=== PATIENT | female | born 1995 | race Caucasian/White ===

== ENCOUNTER 2018-03-21 08:45 | Emergency (ER) | payer OTHER, BC ==
[~2018-03-21] VITALS: Ht 162.6 cm; Wt 54.4 kg
[~2018-03-21 08:45] MED LIST: FLUO-1 PO; LAMO150 PO; LAMO25 PO; ZOFR4TAB PO
[2018-03-21 08:57] VITALS: BP 114/75; RESP 20; TEMP 99.2
[2018-03-21 09:07] VITALS: BP 114/75; PULSE 102; RESP 20; O2SAT 100
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
[2018-03-21] MEDS ORDERED: TETANUS/DIPHTHERIA TOXOID ADULT 0.5 ML VIAL IM ONE (09:15)
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
[2018-03-21] MEDS ORDERED: IBUP-232 PO (10:47)
== END 2018-03-21 11:22 | disposition home or self-care (01) ==
LOC: NEPE 08:45
DX: M54.2 Cervicalgia (principal); M25.562 Pain in left knee; M25.561 Pain in right knee; S60.512A Abrasion of left hand, initial encounter; V89.2XXA Person injured in unspecified motor-vehicle accident, traffic, initial encounter; Y92.410 Unspecified street and highway as the place of occurrence of the external cause; Z23 Encounter for immunization
CPT/HCPCS: 72125; 73560; 90471; 90714

== ENCOUNTER 2018-03-25 13:16 | Emergency (ER) | payer BC ==
[~2018-03-25] VITALS: Ht 170.2 cm; Wt 70.0 kg
[~2018-03-25 13:16] MED LIST changes: +IBUP-232 PO
[2018-03-25 13:19] VITALS: BP 108/72; PULSE 101; RESP 17; TEMP 97.9; O2SAT 99
[2018-03-25] MEDS ORDERED: REME15TA PO (14:36)
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
== END 2018-03-25 20:54 | disposition left against medical advice (07) ==
LOC: NEPD 13:16
DX: G47.00 Insomnia, unspecified (principal)
CPT/HCPCS: 99281